=== PATIENT | male | born 1995 | race Caucasian/White ===

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

== ENCOUNTER 2017-09-25 10:18 | Emergency (ER) ==
[2017-09-25 10:29] VITALS: BP 145/93; TEMP 98; BMI 19.8
--- NOTE | 2017-09-25 10:35 | ED.PDOC ---
General ED Provider: Dr. AMARI POE Chief Complaint: Head Injury Stated Complaint: head injury Time Seen by Physician: 10:20 (1 day ago seen with rebeca at all times ) Mode of Arrival: Walk-In Information Source: Patient Exam Limitations: No limitations Primary Care Provider: SANDY ZUNIGA-[facility] Nursing and Triage Documentation Reviewed and Agree: Yes Reviewed sepsis parameters & appropriate labs ordered?: Yes System Inflammatory Response Syndrome: Not Applicable Sepsis Protocol: For patient's 13 years and over: Temp is 96.8 and below OR 101 and greater Pulse >90 BPM Resp >20/minute Acutely Altered Mental Status Are patient's symptoms suggestive of a new infection, such as: -Pneumonia -Skin, Soft Tissue -Endocarditis -UTI -Bone, Joint Infection -Implantable Device -Acute Abdominal Infection -Wound Infection -Meningitis -Blood Stream Catheter Infection -Unknown System Inflammatory Response Syndrome: Not Applicable Trauma/Injury Complaint Exam - Trauma Complaint/Exam Location of Pain or Injury: Reports: Head, Neck Mechanism of Injury: Reports: Direct blow Onset/Duration: 1 day ago Symptoms Are: Still present (smoked zheng burke) Initial Severity: Mild Current Severity: Mild Aggravating: Reports: None Alleviating: Reports: None Associated Signs and Symptoms: Denies: LOC, Confusion, Memory loss, Lethargy, Vomiting, Bleeding, Bruising, Swelling, Extremity disuse, Painful respiration, Hoarseness, Dysphagia, Hemoptysis, Significant blood loss Related History: Reports: Similar episode Penetrating Injury Risk Factors: Reports: None Related Surgical History: Reports: None Nexus Low Risk Criteria: No evidence of intoxicat., No focal neuro deficit, No distracting injuries Glascow Coma Scale (see protocol): 15 Review of Systems - Review Of Systems Constitutional: Reports: No symptoms Eyes: Reports: No symptoms Ears, Nose, Mouth, Throat: Reports: No symptoms Respiratory: Reports: No symptoms Cardiac: Reports: No symptoms GI: Reports: Nausea, Vomiting (x2/24 hrs) : Reports: No symptoms Musculoskeletal: Reports: No symptoms Skin: Reports: No symptoms Neurological: Reports: No symptoms Endocrine: Reports: No symptoms Hematologic/Lymphatic: Reports: No symptoms All Other Systems: Reviewed and Negative Past Medical History - Past Medical History Previously Healthy: Yes Endocrine: Reports: None Cardiovascular: Reports: None Respiratory: Reports: None Hematological: Reports: None Gastrointestinal: Reports: None Genitourinary: Reports: None Neuro/Psych: Reports: None Musculoskeletal: Reports: None Cancer: Reports: None - Surgical History General Surgical History: Reports: Appendectomy, Other (ear tubes) - Family History Family History: Reports: None - Social History Smoking Status: Never smoker Hx Substance Use: No Alcohol Screening: Occasionally Physical Exam - Physical Exam Appearance: Well-appearing, No pain distress, Well-nourished Eyes: JORDON, EOMI, Conjunctiva clear ENT: Ears normal, Nose normal, Oropharynx normal Respiratory: Airway patent, Breath sounds clear, Breath sounds equal, Respirations nonlabored Cardiovascular: RRR, Pulses normal, No rub, No murmur GI/: Soft, Nontender, No masses, Bowel sounds normal, No Organomegaly Musculoskeletal: Normal strength, ROM intact, No edema, No calf tenderness Skin: Warm, Dry, Normal color Neurological: Sensation intact, Motor intact, Reflexes intact, Cranial nerves intact, Alert, Oriented Psychiatric: Affect appropriate, Mood appropriate Critical Care Note - Critical Care Note Total Time (mins): 0 Course - Course Orders, Labs, Meds: Orders Category Date Time Status CT CERVICAL SPINE W/O CONTRAST Stat RADS 09/25/17 10:[address] HEAD W/O CONTRAST Stat RADS 09/25/17 10:31 Ordered Vital Signs: Temp Pulse Resp BP Pulse Ox 09/25/17 10:19 98.0 F 83 16 145/93 H 98 Departure - Departure Time of Disposition: 10:36 (REBECA PRESENT AT ALL TIMES ) Disposition: HOME SELF-CARE Discharge Problem: Injury of head Instructions: Head Injury (ED) Condition: Good Pt referred to PMD for follow-up: Yes IPMP verified?: Yes Additional Instructions: Please call your Family Physician as soon as possible to schedule a follow-up appointment. Allergies/Adverse Reactions: Allergies No Known Allergies Allergy (Verified 09/25/17 10:22) Home Medications: Ambulatory Orders 1 [No Reported Medications] 11/11/14 Disposition Discussed With: Patient, Family
--- NOTE | 2017-09-25 11:11 | CT ---
EXAM: CT head without contrast HISTORY: Altercation to 6 days ago with vomiting COMPARISON: None TECHNIQUE: Serial axial images of the brain were obtained from the skull base to the vertex without IV contrast. FINDINGS: The ventricles, cisterns and sulci are normal. The smith-white matter junction is well ingris ntained. No midline shift or mass is identified. There is no abnormal intra or extra-axial fluid co llection. The paranasal sinuses and mastoid air cells are clear. The osseous calvarium is intact. IMPRESSION: No acute intracranial abnormality or hemorrhage. If further evaluation is clinically ind icated, MRI may be obtained.
--- NOTE | 2017-09-25 11:13 | CT ---
EXAM: CT cervical spine without contrast. HISTORY: Altercation 2 days prior COMPARISON: None TECHNIQUE: Serial axial images of the cervical spine were obtained from the skull base through the l dalia apices without contrast. These were viewed in multiple planes. FINDINGS: Vertebral bodies demonstrate normal height, disc space and alignment. There is normal ali gnment. The odontoid process is unremarkable. The facets and posterior processes are unremarkable. There is no lytic or blastic lesion. The C1 ring is intact. Limited views of the soft tissues are unremarkable. IMPRESSION: 1. Mild straightening of the cervical spine may represent positioning versus muscle spasm. 2. No acute compression fracture or subluxation.
== END 2017-09-25 11:48 | disposition home or self-care (01) ==
LOC: ED 10:18
DX: S09.90XA Unspecified injury of head, initial encounter (principal); R11.2 Nausea with vomiting, unspecified; Y04.2XXA Assault by strike against or bumped into by another person, initial encounter
CPT/HCPCS: 99283